=== PATIENT | female | born 1995 | race African-American/Black ===

== ENCOUNTER 2024-10-19 10:02 | Inpatient (IN) | payer BC ==
[2024-10-19] MEDS ORDERED: hydrALAZINE 20 MG/ML VIAL SLOW IVP PRN (10:17)
[2024-10-19 10:50] LABS: Hematocrit 37.5 % (34.9-44.5); Hemoglobin 12.3 g/dL (12.0-15.5); Mean Corpuscular Hemoglobin 28.4 pg (27.0-33.0); Mean Corpuscular Volume 86.6 fL (81.6-98.3); Platelet Count 258 10x3/uL (150-450); Red Blood Cell (RBC) Count 4.33 10x6/uL (3.90-5.03); White Blood Cell (WBC) Count 8.80 10x3/uL (3.5-10.5)
[2024-10-19 11:06] LABS: ALT (SGPT) 40 U/L (Less than 34); AST (SGOT) 36 U/L (11-34); Albumin 3.3 g/dL (3.1-4.5); Alkaline Phosphatase 95 U/L (40-110); Anion Gap 11 mmol/L (10-20); BUN (Urea Nitrogen) 4 mg/dL (7.0-18.7); Bilirubin, Total 0.4 mg/dL (0.3-1.2); Calc. Creatinine Clearance 0 mL/min (70-130); Calcium 9.4 mg/dL (7.8-10.44); Carbon Dioxide 22 mmol/L (22-29); Chloride 107 mmol/L (98-107); Globulin 3.8 g/dL (2.4-3.5); Glucose 112 mg/dL (70-105); Potassium 3.6 mmol/L (3.5-5.1); Sodium 136 mmol/L (136-145)
[2024-10-19 11:20] LABS: Protein, Urine Random Quant 36.0 mg/dL (1-14)
[2024-10-19 11:22] LABS: Giant Platelets SLIGHT HPF (0-5); MDiff Complete? YES; Platelet Adequacy Comment Appears Adequate; RBC Morphology Within Normal Limits
[2024-10-19] MEDS: metFORMIN 500 MG TAB PO SCH ×2 (14:48→22:19)
[2024-10-19 14:53] VITALS: BMI 47.5
[2024-10-19 15:13] LABS: INR-International Normal Ratio 0.9; PTT 26.8 sec (22.0-33.0); Prothrombin Time 10.3 sec (9.5-12.1)
[2024-10-20 06:07] LABS: ALT (SGPT) 44 U/L (Less than 34); AST (SGOT) 43 U/L (11-34); Albumin 3.0 g/dL (3.1-4.5); Alkaline Phosphatase 88 U/L (40-110); Anion Gap 10 mmol/L (10-20); BUN (Urea Nitrogen) 4 mg/dL (7.0-18.7); Bilirubin, Total 0.3 mg/dL (0.3-1.2); Calc. Creatinine Clearance 343 mL/min (70-130); Calcium 9.2 mg/dL (7.8-10.44); Carbon Dioxide 21 mmol/L (22-29); Chloride 108 mmol/L (98-107); Globulin 3.5 g/dL (2.4-3.5); Glucose 125 mg/dL (70-105); Potassium 3.3 mmol/L (3.5-5.1); Sodium 136 mmol/L (136-145)
[2024-10-20] MEDS ORDERED: Sodium Chloride 0.65% Nasal 44 ML BOT EA NARE PRN (09:21)
[2024-10-20] MEDS: Lantus 1000 UNITS/10 ML VIAL SC SCH ×2 (09:26→19:26)
[2024-10-20] MEDS ORDERED: hydrALAZINE 20 MG/ML VIAL SLOW IVP PRN (20:36)
[2024-10-20] MEDS: diphenhydrAMINE 25 MG CAP PO PRN (21:22)
[2024-10-21] MEDS: Cetirizine HCl 5 MG/5 ML UDCUP PO SCH (09:15)
[2024-10-21] MEDS: Lantus 1000 UNITS/10 ML VIAL SC SCH (09:16)
[2024-10-21] MEDS: NIFEdipine XL 90 MG ER.TAB PO SCH (09:16)
[2024-10-21 11:05] VITALS: BP 120/75
[2024-10-21 11:53] VITALS: TEMP 98.2
[2024-10-22] MEDS ORDERED: NIFEdipine XL 90 MG ER.TAB PO SCH (09:00)
== END 2024-10-21 13:24 | disposition home or self-care (01) | DRG 832 ==
LOC: CSHLD/OP 10:02 → CSHLD 13:54 → OBSVTOIN 13:55 → CSHANTE 16:15
PROVIDERS: ADMIT Obstetrics & Gynecology; ATTEND Obstetrics & Gynecology
DX: O24.415 Gestational diabetes mellitus in pregnancy, controlled by oral hypoglycemic drugs (principal); O10.013 Pre-existing essential hypertension complicating pregnancy, third trimester; O99.213 Obesity complicating pregnancy, third trimester; E66.813 Obesity, class 3; Z3A.28 28 weeks gestation of pregnancy
CPT/HCPCS: 36415; 36416; 76819; 80053; 82570; 83615; 84156; 85025; 85610; 85730; 99285; J1815; Q0162

== ENCOUNTER 2024-11-12 18:28 | Inpatient (IN) | payer BC ==
[2024-11-12] MEDS ORDERED: hydrALAZINE 20 MG/ML VIAL SLOW IVP PRN ×2 (18:59→20:39)
[2024-11-12 19:55] LABS: ALT (SGPT) 75 U/L (Less than 34); AST (SGOT) 49 U/L (11-34); Albumin 3.1 g/dL (3.1-4.5); Alkaline Phosphatase 129 U/L (40-110); Anion Gap 11 mmol/L (10-20); BUN (Urea Nitrogen) 5 mg/dL (7.0-18.7); Bilirubin, Total 0.3 mg/dL (0.3-1.2); Calc. Creatinine Clearance 0 mL/min (70-130); Calcium 9.6 mg/dL (7.8-10.44); Carbon Dioxide 21 mmol/L (22-29); Chloride 108 mmol/L (98-107); Globulin 3.7 g/dL (2.4-3.5); Glucose 76 mg/dL (70-105); Potassium 4.0 mmol/L (3.5-5.1); Sodium 136 mmol/L (136-145)
[2024-11-12 20:07] LABS: Hematocrit 36.9 % (34.9-44.5); Hemoglobin 12.0 g/dL (12.0-15.5); Mean Corpuscular Hemoglobin 28.2 pg (27.0-33.0); Mean Corpuscular Volume 86.8 fL (81.6-98.3); Platelet Count 211 10x3/uL (150-450); Red Blood Cell (RBC) Count 4.25 10x6/uL (3.90-5.03); White Blood Cell (WBC) Count 9.39 10x3/uL (3.5-10.5)
[2024-11-12 20:52] VITALS: BMI 47.9
[2024-11-12 21:17] LABS: MDiff Complete? YES; Platelet Adequacy Comment Appears Adequate; RBC Morphology Within Normal Limits
[2024-11-13 05:33] LABS: Hematocrit 34.5 % (34.9-44.5); Hemoglobin 11.2 g/dL (12.0-15.5); Mean Corpuscular Hemoglobin 28.1 pg (27.0-33.0); Mean Corpuscular Volume 86.7 fL (81.6-98.3); Platelet Count 198 10x3/uL (150-450); Red Blood Cell (RBC) Count 3.98 10x6/uL (3.90-5.03); White Blood Cell (WBC) Count 8.73 10x3/uL (3.5-10.5)
[2024-11-13 05:35] LABS: MDiff Complete? YES; RBC Morphology Within Normal Limits
[2024-11-13 05:39] LABS: ALT (SGPT) 71 U/L (Less than 34); AST (SGOT) 51 U/L (11-34); Albumin 2.9 g/dL (3.1-4.5); Alkaline Phosphatase 119 U/L (40-110); Anion Gap 10 mmol/L (10-20); BUN (Urea Nitrogen) 5 mg/dL (7.0-18.7); Bilirubin, Total 0.3 mg/dL (0.3-1.2); Calc. Creatinine Clearance 303 mL/min (70-130); Calcium 9.3 mg/dL (7.8-10.44); Carbon Dioxide 23 mmol/L (22-29); Chloride 108 mmol/L (98-107); Globulin 3.3 g/dL (2.4-3.5); Glucose 81 mg/dL (70-105); Potassium 4.1 mmol/L (3.5-5.1); Sodium 137 mmol/L (136-145)
[2024-11-13 05:45] LABS: Platelet Adequacy Comment Appears Adequate
[2024-11-13] MEDS: Lantus 1000 UNITS/10 ML VIAL SC SCH (08:58)
[2024-11-13] MEDS: NIFEdipine XL 90 MG ER.TAB PO SCH (08:58)
[2024-11-13] MEDS: Ondansetron PF 4 MG/2 ML Vial IVP PRN (12:05)
[2024-11-13] MEDS: Acetaminophen 500 MG TAB PO PRN (18:28)
[2024-11-14] MEDS: Benzocaine/Menthol 1 LOZ LOZ PO PRN (08:49)
[2024-11-14 12:28] LABS: Hematocrit 36.6 % (34.9-44.5); Hemoglobin 12.1 g/dL (12.0-15.5); Mean Corpuscular Hemoglobin 28.4 pg (27.0-33.0); Mean Corpuscular Volume 85.9 fL (81.6-98.3); Platelet Count 208 10x3/uL (150-450); Red Blood Cell (RBC) Count 4.26 10x6/uL (3.90-5.03); White Blood Cell (WBC) Count 7.92 10x3/uL (3.5-10.5)
[2024-11-14 12:33] LABS: ALT (SGPT) 78 U/L (Less than 34); AST (SGOT) 60 U/L (11-34); Albumin 3.0 g/dL (3.1-4.5); Alkaline Phosphatase 131 U/L (40-110); Anion Gap 14 mmol/L (10-20); BUN (Urea Nitrogen) 4 mg/dL (7.0-18.7); Bilirubin, Total 0.3 mg/dL (0.3-1.2); Calc. Creatinine Clearance 314 mL/min (70-130); Calcium 9.9 mg/dL (7.8-10.44); Carbon Dioxide 20 mmol/L (22-29); Chloride 107 mmol/L (98-107); Globulin 3.6 g/dL (2.4-3.5); Glucose 112 mg/dL (70-105); Potassium 3.6 mmol/L (3.5-5.1); Sodium 137 mmol/L (136-145)
[2024-11-14 12:54] LABS: MDiff Complete? YES; Platelet Adequacy Comment Appears Adequate; RBC Morphology Within Normal Limits
[2024-11-15] MEDS: hydrALAZINE 20 MG/ML VIAL ONE (06:38)
[2024-11-15] MEDS: hydrALAZINE 20 MG/ML VIAL SLOW IVP SCH (06:38)
[2024-11-15 11:40] LABS: Hematocrit 37.3 % (34.9-44.5); Hemoglobin 12.1 g/dL (12.0-15.5); Mean Corpuscular Hemoglobin 28.1 pg (27.0-33.0); Mean Corpuscular Volume 86.5 fL (81.6-98.3); Platelet Count 204 10x3/uL (150-450); Red Blood Cell (RBC) Count 4.31 10x6/uL (3.90-5.03); White Blood Cell (WBC) Count 7.92 10x3/uL (3.5-10.5)
[2024-11-15 11:47] LABS: ALT (SGPT) 80 U/L (Less than 34); AST (SGOT) 59 U/L (11-34); Albumin 3.0 g/dL (3.1-4.5); Alkaline Phosphatase 126 U/L (40-110); Anion Gap 12 mmol/L (10-20); BUN (Urea Nitrogen) 4 mg/dL (7.0-18.7); Bilirubin, Total 0.3 mg/dL (0.3-1.2); Calc. Creatinine Clearance 320 mL/min (70-130); Calcium 9.2 mg/dL (7.8-10.44); Carbon Dioxide 19 mmol/L (22-29); Chloride 107 mmol/L (98-107); Globulin 3.5 g/dL (2.4-3.5); Glucose 96 mg/dL (70-105); Potassium 3.3 mmol/L (3.5-5.1); Sodium 135 mmol/L (136-145)
[2024-11-15 11:52] LABS: #Basophils 0.04 10x3/uL (0.0-0.2); #Eosinophils 0.11 10x3/uL (0.0-0.5); #Monocytes 0.70 10x3/uL (0.0-1.1); #Neutrophils 5.17 10x3/uL (1.5-8.4); %Basophils 0.5 % (0.0-2.0); %Eosinophils 1.4 % (0.0-6.0); %Lymphocytes 23.9 % (18.0-47.0); %Monocytes 8.8 % (0.0-10.0); %Neutrophils 65.1 % (40.0-75.0)
[2024-11-16 05:59] LABS: ALT (SGPT) 83 U/L (Less than 34); AST (SGOT) 59 U/L (11-34); Albumin 2.9 g/dL (3.1-4.5); Alkaline Phosphatase 127 U/L (40-110); Anion Gap 13 mmol/L (10-20); BUN (Urea Nitrogen) 4 mg/dL (7.0-18.7); Bilirubin, Total 0.3 mg/dL (0.3-1.2); Calc. Creatinine Clearance 293 mL/min (70-130); Calcium 9.3 mg/dL (7.8-10.44); Carbon Dioxide 20 mmol/L (22-29); Chloride 109 mmol/L (98-107); Globulin 3.6 g/dL (2.4-3.5); Glucose 84 mg/dL (70-105); Hematocrit 36.8 % (34.9-44.5); Hemoglobin 12.3 g/dL (12.0-15.5); Mean Corpuscular Hemoglobin 28.7 pg (27.0-33.0); Mean Corpuscular Volume 86.0 fL (81.6-98.3); Platelet Count 199 10x3/uL (150-450); Potassium 3.7 mmol/L (3.5-5.1); Red Blood Cell (RBC) Count 4.28 10x6/uL (3.90-5.03); Sodium 138 mmol/L (136-145); White Blood Cell (WBC) Count 7.98 10x3/uL (3.5-10.5)
[2024-11-16 06:02] LABS: MDiff Complete? YES; Platelet Adequacy Comment Appears Adequate; RBC Morphology Within Normal Limits
[2024-11-16] MEDS: hydrALAZINE 20 MG/ML VIAL SLOW IVP PRN (06:15)
[2024-11-16 13:58] LABS: Group B Streptococcus by PCR INDETERMINATE (NotDetected)
[2024-11-17 05:45] LABS: Hematocrit 36.2 % (34.9-44.5); Hemoglobin 11.9 g/dL (12.0-15.5); Mean Corpuscular Hemoglobin 28.4 pg (27.0-33.0); Mean Corpuscular Volume 86.4 fL (81.6-98.3); Platelet Count 202 10x3/uL (150-450); Red Blood Cell (RBC) Count 4.19 10x6/uL (3.90-5.03); White Blood Cell (WBC) Count 8.50 10x3/uL (3.5-10.5)
[2024-11-17 05:47] LABS: MDiff Complete? YES; Platelet Adequacy Comment Appears Adequate; RBC Morphology Within Normal Limits
[2024-11-17 05:48] LABS: ALT (SGPT) 89 U/L (Less than 34); AST (SGOT) 64 U/L (11-34); Albumin 2.8 g/dL (3.1-4.5); Alkaline Phosphatase 136 U/L (40-110); Anion Gap 14 mmol/L (10-20); BUN (Urea Nitrogen) 6 mg/dL (7.0-18.7); Bilirubin, Total 0.2 mg/dL (0.3-1.2); Calc. Creatinine Clearance 288 mL/min (70-130); Calcium 9.6 mg/dL (7.8-10.44); Carbon Dioxide 21 mmol/L (22-29); Chloride 106 mmol/L (98-107); Globulin 3.5 g/dL (2.4-3.5); Glucose 80 mg/dL (70-105); Potassium 3.7 mmol/L (3.5-5.1); Sodium 137 mmol/L (136-145)
[2024-11-17] MEDS: hydrALAZINE 20 MG/ML VIAL SLOW IVP PRN (05:55)
[2024-11-17] MEDS ORDERED: Glucagon 1 MG/ML KIT IM PRN (08:50)
[2024-11-17] MEDS ORDERED: Dextrose 50% Abboject 50 ML SYRINGE SLOW IVP PRN (08:50)
[2024-11-17] MEDS: NIFEdipine XL 60 MG ER.TAB PO SCH (10:23)
[2024-11-18 04:23] LABS: #Basophils Less than 0.03 10x3/uL (0.0-0.2); #Eosinophils Less than 0.03 10x3/uL (0.0-0.5); #Monocytes 0.70 10x3/uL (0.0-1.1); #Neutrophils 9.13 10x3/uL (1.5-8.4); %Basophils 0.1 % (0.0-2.0); %Eosinophils 0.0 % (0.0-6.0); %Lymphocytes 14.4 % (18.0-47.0); %Monocytes 6.0 % (0.0-10.0); %Neutrophils 78.9 % (40.0-75.0); Hematocrit 38.1 % (34.9-44.5); Hemoglobin 12.5 g/dL (12.0-15.5); Mean Corpuscular Hemoglobin 28.3 pg (27.0-33.0); Mean Corpuscular Volume 86.4 fL (81.6-98.3); Platelet Count 212 10x3/uL (150-450); Red Blood Cell (RBC) Count 4.41 10x6/uL (3.90-5.03); White Blood Cell (WBC) Count 11.58 10x3/uL (3.5-10.5)
[2024-11-18 04:40] LABS: ALT (SGPT) 118 U/L (Less than 34); AST (SGOT) 81 U/L (11-34); Albumin 3.0 g/dL (3.1-4.5); Alkaline Phosphatase 141 U/L (40-110); Anion Gap 15 mmol/L (10-20); BUN (Urea Nitrogen) 8 mg/dL (7.0-18.7); Bilirubin, Total 0.4 mg/dL (0.3-1.2); Calc. Creatinine Clearance 288 mL/min (70-130); Calcium 10.5 mg/dL (7.8-10.44); Carbon Dioxide 19 mmol/L (22-29); Chloride 105 mmol/L (98-107); Globulin 3.8 g/dL (2.4-3.5); Glucose 100 mg/dL (70-105); Potassium 4.1 mmol/L (3.5-5.1); Sodium 135 mmol/L (136-145)
[2024-11-19 06:07] LABS: #Basophils Less than 0.03 10x3/uL (0.0-0.2); #Eosinophils Less than 0.03 10x3/uL (0.0-0.5); #Monocytes 1.13 10x3/uL (0.0-1.1); #Neutrophils 8.65 10x3/uL (1.5-8.4); %Basophils 0.1 % (0.0-2.0); %Eosinophils 0.1 % (0.0-6.0); %Lymphocytes 16.2 % (18.0-47.0); %Monocytes 9.6 % (0.0-10.0); %Neutrophils 73.2 % (40.0-75.0); Hematocrit 36.3 % (34.9-44.5); Hemoglobin 11.8 g/dL (12.0-15.5); Mean Corpuscular Hemoglobin 28.4 pg (27.0-33.0); Mean Corpuscular Volume 87.3 fL (81.6-98.3); Platelet Count 212 10x3/uL (150-450); Red Blood Cell (RBC) Count 4.16 10x6/uL (3.90-5.03); White Blood Cell (WBC) Count 11.80 10x3/uL (3.5-10.5)
[2024-11-19 06:25] LABS: ALT (SGPT) 192 U/L (Less than 34); AST (SGOT) 129 U/L (11-34); Albumin 2.9 g/dL (3.1-4.5); Alkaline Phosphatase 123 U/L (40-110); Anion Gap 14 mmol/L (10-20); BUN (Urea Nitrogen) 7 mg/dL (7.0-18.7); Bilirubin, Total 0.3 mg/dL (0.3-1.2); Calc. Creatinine Clearance 303 mL/min (70-130); Calcium 9.4 mg/dL (7.8-10.44); Carbon Dioxide 20 mmol/L (22-29); Chloride 107 mmol/L (98-107); Globulin 3.7 g/dL (2.4-3.5); Glucose 109 mg/dL (70-105); Potassium 3.7 mmol/L (3.5-5.1); Sodium 137 mmol/L (136-145)
[2024-11-19 12:56] VITALS: BMI 47.9
[2024-11-20 06:28] LABS: Hematocrit 35.9 % (34.9-44.5); Hemoglobin 11.6 g/dL (12.0-15.5); Mean Corpuscular Hemoglobin 28.2 pg (27.0-33.0); Mean Corpuscular Volume 87.3 fL (81.6-98.3); Platelet Count 189 10x3/uL (150-450); Red Blood Cell (RBC) Count 4.11 10x6/uL (3.90-5.03); White Blood Cell (WBC) Count 8.46 10x3/uL (3.5-10.5)
[2024-11-20 06:40] LABS: ALT (SGPT) 225 U/L (Less than 34); AST (SGOT) 137 U/L (11-34); Albumin 2.7 g/dL (3.1-4.5); Alkaline Phosphatase 116 U/L (40-110); Anion Gap 16 mmol/L (10-20); BUN (Urea Nitrogen) 7 mg/dL (7.0-18.7); Bilirubin, Total 0.3 mg/dL (0.3-1.2); Calc. Creatinine Clearance 317 mL/min (70-130); Calcium 9.0 mg/dL (7.8-10.44); Carbon Dioxide 19 mmol/L (22-29); Chloride 109 mmol/L (98-107); Globulin 3.3 g/dL (2.4-3.5); Glucose 84 mg/dL (70-105); Potassium 3.8 mmol/L (3.5-5.1); Sodium 140 mmol/L (136-145)
[2024-11-20 07:02] LABS: MDiff Complete? YES; Platelet Adequacy Comment Appears Adequate; RBC Morphology Within Normal Limits
[2024-11-21 06:34] LABS: #Basophils 0.04 10x3/uL (0.0-0.2); #Eosinophils 0.10 10x3/uL (0.0-0.5); #Monocytes 0.94 10x3/uL (0.0-1.1); #Neutrophils 5.45 10x3/uL (1.5-8.4); %Basophils 0.4 % (0.0-2.0); %Eosinophils 1.1 % (0.0-6.0); %Lymphocytes 26.1 % (18.0-47.0); %Monocytes 10.6 % (0.0-10.0); %Neutrophils 61.2 % (40.0-75.0); Hematocrit 38.0 % (34.9-44.5); Hemoglobin 12.1 g/dL (12.0-15.5); Mean Corpuscular Hemoglobin 27.9 pg (27.0-33.0); Mean Corpuscular Volume 87.8 fL (81.6-98.3); Platelet Count 192 10x3/uL (150-450); Red Blood Cell (RBC) Count 4.33 10x6/uL (3.90-5.03); White Blood Cell (WBC) Count 8.90 10x3/uL (3.5-10.5)
[2024-11-21 06:55] LABS: ALT (SGPT) 210 U/L (Less than 34); AST (SGOT) 126 U/L (11-34); Albumin 2.7 g/dL (3.1-4.5); Alkaline Phosphatase 121 U/L (40-110); Anion Gap 15 mmol/L (10-20); BUN (Urea Nitrogen) 11 mg/dL (7.0-18.7); Bilirubin, Total 0.3 mg/dL (0.3-1.2); Calc. Creatinine Clearance 256 mL/min (70-130); Calcium 10.3 mg/dL (7.8-10.44); Carbon Dioxide 22 mmol/L (22-29); Chloride 107 mmol/L (98-107); Globulin 3.3 g/dL (2.4-3.5); Glucose 96 mg/dL (70-105); Potassium 4.0 mmol/L (3.5-5.1); Sodium 140 mmol/L (136-145)
[2024-11-21] MEDS: Magnesium Sulfate 20 gm/500 ml 20 GM/500 ML BAG ONE (10:44)
[2024-11-21] MEDS: hydrALAZINE 20 MG/ML VIAL ONE (10:45)
[2024-11-21] MEDS ORDERED: Lidocaine 1% (PF) 30 ML VIAL SC PRN (11:02)
[2024-11-21] MEDS ORDERED: Ibuprofen 800 MG TAB PO PRN (11:02)
[2024-11-21] MEDS ORDERED: HYDROcodone/Acetaminophen 5/325 mg Tablet PO PRN (11:02)
[2024-11-21] MEDS ORDERED: Penicillin G Potassium 5 MILL.UNITS in Sodium Chloride 0.9% 100 ML IVPB SCH (11:15)
[2024-11-21] MEDS ORDERED: Oxytocin 30 units/NS 500 ML 500 ML IV SCH ×3 (11:15→16:45)
[2024-11-21] MEDS ORDERED: Calcium Gluc 4.6 MEQ/10 ML (100 MG/ML) SLOW IVP PRN ×2 (11:43→13:26)
[2024-11-21] MEDS: hydrALAZINE 20 MG/ML VIAL SLOW IVP SCH (11:45)
[2024-11-21] MEDS: CEFAZOLIN 2 GM VIAL ONE (14:01)
[2024-11-21] MEDS ORDERED: NIFEdipine 10 MG CAP PO PRN (14:42)
[2024-11-21] MEDS: NIFEdipine 10 MG CAP PO PRN (14:59)
[2024-11-21] MEDS ORDERED: Boostrix 0.5 ML (Tdap) VIAL (>/=7 yrs of age) IM ONE (16:37)
[2024-11-21] MEDS ORDERED: Simethicone Chewable 80 MG TAB PO PRN (16:37)
[2024-11-21] MEDS ORDERED: Ondansetron PF 4 MG/2 ML Vial IVP PRN ×2 (16:49)
[2024-11-21] MEDS ORDERED: diphenhydrAMINE 50 MG/ML VIAL IVP PRN (16:49)
[2024-11-21] MEDS ORDERED: Meperidine HCl/PF 25 MG (1 mL) VIAL SLOW IVP PRN (16:49)
[2024-11-21] MEDS ORDERED: Ketorolac Tromethamine 30 MG (1 mL) VIAL IVP SCH (17:00)
[2024-11-21] MEDS ORDERED: Communication Order-Pharmacy FS SCH (17:00)
[2024-11-21] MEDS ORDERED: Diphenoxylate HCl/Atropine Tablet PO PRN (17:07)
[2024-11-21] MEDS: Tranexamic Acid 1,000 MG/10 ML VIAL ONE (17:17)
[2024-11-21] MEDS: Diphenoxylate HCl/Atropine Tablet PO PRN (17:20)
[2024-11-22] MEDS ORDERED: Acetaminophen/Codeine 30-300mg Tablet PO PRN (05:00)
[2024-11-22] MEDS ORDERED: Diphenoxylate HCl/Atropine Tablet PO PRN ×2 (05:00)
[2024-11-22 07:21] LABS: Platelet Count 206 10x3/uL (150-450)
[2024-11-22 07:24] LABS: #Basophils 0.03 10x3/uL (0.0-0.2); #Eosinophils 0.03 10x3/uL (0.0-0.5); #Monocytes 1.30 10x3/uL (0.0-1.1); #Neutrophils 11.72 10x3/uL (1.5-8.4); %Basophils 0.2 % (0.0-2.0); %Eosinophils 0.2 % (0.0-6.0); %Lymphocytes 16.8 % (18.0-47.0); %Monocytes 8.2 % (0.0-10.0); %Neutrophils 74.2 % (40.0-75.0); Hematocrit 37.9 % (34.9-44.5); Hemoglobin 12.4 g/dL (12.0-15.5); Mean Corpuscular Hemoglobin 28.1 pg (27.0-33.0); Mean Corpuscular Volume 85.7 fL (81.6-98.3); Red Blood Cell (RBC) Count 4.42 10x6/uL (3.90-5.03); White Blood Cell (WBC) Count 15.80 10x3/uL (3.5-10.5)
[2024-11-22 07:34] LABS: ALT (SGPT) 200 U/L (Less than 34); AST (SGOT) 107 U/L (11-34); Albumin 2.6 g/dL (3.1-4.5); Alkaline Phosphatase 118 U/L (40-110); Anion Gap 15 mmol/L (10-20); BUN (Urea Nitrogen) 7 mg/dL (7.0-18.7); Bilirubin, Total 0.4 mg/dL (0.3-1.2); Calc. Creatinine Clearance 300 mL/min (70-130); Calcium 8.4 mg/dL (7.8-10.44); Carbon Dioxide 19 mmol/L (22-29); Chloride 106 mmol/L (98-107); Globulin 3.4 g/dL (2.4-3.5); Glucose 73 mg/dL (70-105); Potassium 4.3 mmol/L (3.5-5.1); Sodium 136 mmol/L (136-145)
[2024-11-22] MEDS: Ketorolac Tromethamine 30 MG (1 mL) VIAL IVP PRN (07:45)
[2024-11-22] MEDS: hydrALAZINE 20 MG/ML VIAL SLOW IVP PRN ×2 (08:44)
[2024-11-22] MEDS: NIFEdipine XL 30 MG ER.TAB PO SCH ×3 (08:52→20:02)
[2024-11-22] MEDS: Magnesium Sulfate 20 gm/500 ml 20 GM/500 ML BAG IVPB SCH (12:42)
[2024-11-22] MEDS: Penicillin G 2.5 MILL.units 2.5 MILL.UNITS in Premix 1 BAG IVPB SCH (19:18)
[2024-11-22] MEDS: Oxytocin 10 UNITS/ML VIAL ONE (19:22)
[2024-11-22] MEDS: Dexamethasone 10 MG/ML VIAL ONE (19:22)
[2024-11-22] MEDS: Enoxaparin 40 MG (0.4 mL) SYRINGE SC SCH (19:22)
[2024-11-22] MEDS: Ondansetron PF 4 MG/2 ML Vial ONE (19:22)
[2024-11-22] MEDS: PHENYLEPHRINE-NS 100 MCG/ML 10 ML SYRINGE ONE (19:23)
[2024-11-22] MEDS: Ibuprofen 800 MG TAB PO SCH (21:10)
[2024-11-22] MEDS: Acetaminophen/Codeine 30-300mg Tablet PO PRN (21:12)
[2024-11-23 05:38] LABS: #Basophils 0.03 10x3/uL (0.0-0.2); #Eosinophils 0.09 10x3/uL (0.0-0.5); #Monocytes 1.06 10x3/uL (0.0-1.1); #Neutrophils 6.46 10x3/uL (1.5-8.4); %Basophils 0.3 % (0.0-2.0); %Eosinophils 0.8 % (0.0-6.0); %Lymphocytes 27.5 % (18.0-47.0); %Monocytes 10.0 % (0.0-10.0); %Neutrophils 61.0 % (40.0-75.0); Hematocrit 34.4 % (34.9-44.5); Hemoglobin 10.9 g/dL (12.0-15.5); Mean Corpuscular Hemoglobin 27.9 pg (27.0-33.0); Mean Corpuscular Volume 88.0 fL (81.6-98.3); Platelet Count 189 10x3/uL (150-450); Red Blood Cell (RBC) Count 3.91 10x6/uL (3.90-5.03); White Blood Cell (WBC) Count 10.60 10x3/uL (3.5-10.5)
[2024-11-23 05:56] LABS: ALT (SGPT) 164 U/L (Less than 34); AST (SGOT) 75 U/L (11-34); Albumin 2.5 g/dL (3.1-4.5); Alkaline Phosphatase 110 U/L (40-110); Anion Gap 11 mmol/L (10-20); BUN (Urea Nitrogen) 9 mg/dL (7.0-18.7); Bilirubin, Total 0.3 mg/dL (0.3-1.2); Calc. Creatinine Clearance 272 mL/min (70-130); Calcium 8.5 mg/dL (7.8-10.44); Carbon Dioxide 27 mmol/L (22-29); Chloride 104 mmol/L (98-107); Globulin 3.3 g/dL (2.4-3.5); Glucose 77 mg/dL (70-105); Potassium 3.7 mmol/L (3.5-5.1); Sodium 138 mmol/L (136-145)
[2024-11-24 08:23] LABS: #Basophils 0.04 10x3/uL (0.0-0.2); #Eosinophils 0.21 10x3/uL (0.0-0.5); #Monocytes 0.97 10x3/uL (0.0-1.1); #Neutrophils 4.88 10x3/uL (1.5-8.4); %Basophils 0.4 % (0.0-2.0); %Eosinophils 2.3 % (0.0-6.0); %Lymphocytes 33.7 % (18.0-47.0); %Monocytes 10.5 % (0.0-10.0); %Neutrophils 52.6 % (40.0-75.0); Hematocrit 34.5 % (34.9-44.5); Hemoglobin 11.0 g/dL (12.0-15.5); Mean Corpuscular Hemoglobin 28.3 pg (27.0-33.0); Mean Corpuscular Volume 88.7 fL (81.6-98.3); Platelet Count 236 10x3/uL (150-450); Red Blood Cell (RBC) Count 3.89 10x6/uL (3.90-5.03); White Blood Cell (WBC) Count 9.28 10x3/uL (3.5-10.5)
[2024-11-24 08:43] LABS: ALT (SGPT) 142 U/L (Less than 34); AST (SGOT) 66 U/L (11-34); Albumin 2.7 g/dL (3.1-4.5); Alkaline Phosphatase 123 U/L (40-110); Anion Gap 15 mmol/L (10-20); BUN (Urea Nitrogen) 5 mg/dL (7.0-18.7); Bilirubin, Total 0.3 mg/dL (0.3-1.2); Calc. Creatinine Clearance 295 mL/min (70-130); Calcium 9.2 mg/dL (7.8-10.44); Carbon Dioxide 23 mmol/L (22-29); Chloride 106 mmol/L (98-107); Globulin 3.7 g/dL (2.4-3.5); Glucose 79 mg/dL (70-105); Potassium 3.5 mmol/L (3.5-5.1); Sodium 140 mmol/L (136-145)
[2024-11-24 11:18] VITALS: BP 137/87; TEMP 98.4
== END 2024-11-24 13:30 | disposition home or self-care (01) | DRG 788 ==
LOC: CSHLD 18:28 → CSHANTE 11-13 02:45 → CSHLD 11-21 11:14 → CSHPP 11-22 18:04
PROVIDERS: ADMIT Obstetrics & Gynecology; ATTEND Obstetrics & Gynecology
PROC: 4A1HXCZ Monitoring of Products of Conception, Cardiac Rate, External Approach (ICD-10-PCS; 2024-11-12)
PROC: 10D00Z1 Extraction of Products of Conception, Low, Open Approach (ICD-10-PCS; principal; 2024-11-21)
DX: O11.3 Pre-existing hypertension with pre-eclampsia, third trimester (principal); O24.414 Gestational diabetes mellitus in pregnancy, insulin controlled; O99.214 Obesity complicating childbirth; E55.9 Vitamin D deficiency, unspecified; D56.3 Thalassemia minor; O99.891 Other specified diseases and conditions complicating pregnancy; M94.0 Chondrocostal junction syndrome [Tietze]; O99.283 Endocrine, nutritional and metabolic diseases complicating pregnancy, third trimester; E66.813 Obesity, class 3; R74.01 Elevation of levels of liver transaminase levels; R05.9 Cough, unspecified; Z79.4 Long term (current) use of insulin; Z79.899 Other long term (current) drug therapy; Z3A.31 31 weeks gestation of pregnancy; Z37.0 Single live birth
CPT/HCPCS: 36415; 36416; 51702; 76705; 76819; 80053; 82951; 85025; 86850; 86900; 86901; 87653; 88307; 93306; 99285; J0360; J0702; J1100; J1650; J1815; J1885; J2274; J2590; J3475